=== PATIENT | female | born 1950 | race Caucasian/White ===

== ENCOUNTER 2019-08-15 13:11 | Emergency (ER) | payer BC ==
--- NOTE | 2019-08-15 13:17 | ERPHSYRPT ---
- History of Present Illness Time Seen by Provider: 08/15/19 13:16 Source: patient Exam Limitations: clinical condition Physician History: This is a 69-year-old frail white female who states that she has not been feeling well for a long time. She was unable to specify how long that is been. Patient denies headache, she denies nausea vomiting or diarrhea. Patient denies chest pain, she denies shortness of breath, she denies abdominal pain. Patient states she primarily just feels weak and tired. Patient states there is been no new medications. She is noticed no blood loss. Patient has no known drug allergies and she has no reportable medications that she takes on a chronic daily basis. Timing/Duration: other Severity: moderate Associated Symptoms: weakness, No nausea, No vomiting, No abdominal pain, No shortness of breath, No chest pain, No fever Allergies/Adverse Reactions: No Known Drug Allergies Allergy (Unverified 08/15/19 13:38) Home Medications: No Reportable Medications [No Reported Medications] 08/15/19 [History] Travel Risk - International Travel Have you traveled outside of the country in past 3 weeks: No Have you or anyone close to you been diagnosed with or: No Do your reside in a community with a known COVID-19 case?: Yes If Yes where:: [address] [place] [address] - Coronavirus Screening Has patient experienced Coronavirus symptoms: Yes Symptoms experienced: weakness - Review of Systems Constitutional: Weakness Eyes: No Symptoms Ears, Nose, & Throat: No Symptoms Respiratory: No Symptoms Cardiac: No Symptoms Abdominal/Gastrointestinal: No Symptoms Genitourinary Symptoms: No Symptoms Musculoskeletal: No Symptoms Skin: No Symptoms Neurological: No Symptoms Psychological: No Symptoms Endocrine: No Symptoms Hematologic/Lymphatic: No Symptoms Immunological/Allergic: No Symptoms All Other Systems: Reviewed and Negative - Past Medical History Neurological History: No Pertinent History ENT History: No Pertinent History Cardiac History: No Pertinent History Respiratory History: No Pertinent History Endocrine Medical History: No Pertinent History Musculoskeletal History: No Pertinent History GI Medical History: No Pertinent History History: No Pertinent History Psycho-Social History: No Pertinent History Female Reproductive Disorders: No Pertinent History - Past Surgical History Neuro Surgical History: No Pertinent History Cardiac: No Pertinent History Respiratory: No Pertinent History Gastrointestinal: No Pertinent History Genitourinary: No Pertinent History Musculoskeletal: No Pertinent History Female Surgical History: No Pertinent History - Nursing Vital Signs Nursing Vital Signs: Initial Vital Signs Temperature 98.7 F 08/15/19 13:21 Pulse Rate 90 08/15/19 13:21 Respiratory Rate 20 08/15/19 13:21 Blood Pressure 142/77 08/15/19 13:21 O2 Sat by Pulse Oximetry 96 08/15/19 13:21 Pain Scale Pain Intensity 0 - Physical Exam General Appearance: mild distress, alert, lethargy, thin Eye Exam: PERRL/EOMI, eyes nml inspection Ears, Nose, Throat Exam: normal ENT inspection, dry mucous membranes Neck Exam: normal inspection, non-tender, supple, full range of motion Respiratory Exam: normal breath sounds, lungs clear, airway intact, No chest tenderness, No respiratory distress Cardiovascular Exam: regular rate/rhythm, normal heart sounds, normal peripheral pulses Gastrointestinal/Abdomen Exam: soft, normal bowel sounds, No tenderness Pelvic Exam: not done Rectal Exam: not done Back Exam: normal inspection, normal range of motion, No CVA tenderness Extremity Exam: normal inspection, normal range of motion, pelvis stable Neurologic Exam: alert, oriented x 3, cooperative, supervisor long goods II-XII nml as tested Skin Exam: normal color, warm, dry Lymphatic Exam: No adenopathy SpO2 Interpretation: normal O2 Delivery: Room Air - Course Nursing assessment & vital signs reviewed: Yes Ordered Tests: Active Orders 24 hr Category Date Time Status Clean Catch Urine Specimen STAT Care 08/15/19 14:49 Active EKG-ER Only STAT Care 08/15/19 13:31 Active HEAD WITHOUT CONTRAST [CT] Stat Exams 08/15/19 13:47 Completed CBC W DIFF Stat Lab 08/15/19 13:59 Completed CMP Stat Lab 08/15/19 13:59 Completed Lactic Acid Stat Lab 08/15/19 13:50 Completed MAGNESIUM Stat Lab 08/15/19 13:59 Completed NT PRO BNP Stat Lab 08/15/19 13:59 Completed T4 (Thyroxine) Stat Lab 08/15/19 13:59 Completed TROPONIN Q3H Lab 08/15/19 13:30 Completed TROPONIN Q3H Lab 08/15/19 16:30 Ordered TROPONIN Q3H Lab 08/15/19 19:30 Ordered TROPONIN Q3H Lab 08/15/19 22:30 Ordered TROPONIN Q3H Lab 08/16/19 01:30 Ordered TSH, 3RD Generation Routine Lab 08/15/19 13:30 Completed UA W/RFX UR CULTURE Stat Lab 08/15/19 13:53 Completed Urine Triage Profile Stat Lab 08/15/19 Completed Medication Summary Generic Name Dose Route Start Last Admin Trade Name Chau PRN Reason Stop Dose Admin Sodium Chloride 1,000 mls @ 100 mls/hr 08/15/19 13:45 08/15/19 13:44 Sodium Chloride 0.9% 1000 Ml IV 09/14/19 13:44 100 mls/hr .Q10H EDY Administration Lab/Rad Data: Laboratory Result Diagrams 08/15/19 13:59 08/15/19 13:59 Laboratory Results 08/15/19 08/15/19 08/15/19 Range/Units Unknown 13:59 13:59 WBC (4.0-10.5) K/mm3 RBC (4.1-5.4) M/mm3 Hgb (12.0-16.0) gm/dl Hct (35-47) % MCV (78-100) fl MCH (26-32) pg MCHC (32-36) g/dl RDW (11.5-14.0) % Plt Count (150-450) K/mm3 MPV (7.5-11.0) fl Gran % (36.0-66.0) % Eos # (Auto) (0-0.5) Absolute Lymphs (auto) (1.0-4.6) Absolute Monos (auto) (0.0-1.3) Lymphocytes % (24.0-44.0) % Monocytes % (0.0-12.0) % Eosinophils % (0.00-5.0) % Basophils % (0.0-0.4) % Absolute Granulocytes (1.4-6.9) Basophils # (0-0.4) Sodium (137-145) mmol/L Potassium (3.5-5.1) mmol/L Chloride (98-107) mmol/L Carbon Dioxide (22-30) mmol/L Anion Gap (5-15) MEQ/L BUN (7-17) mg/dL Creatinine (0.52-1.04) mg/dL Estimated GFR ML/MIN Glucose (74-106) mg/dL Lactic Acid (0.4-2.0) Calcium (8.4-10.2) mg/dL Magnesium (1.6-2.3) mg/dL Total Bilirubin (0.2-1.3) mg/dL AST (14-36) U/L ALT (0-35) U/L Alkaline Phosphatase (38-126) U/L Ammonia < 9 L (9-30) umol/L Troponin I (0.000-0.034) ng/mL NT-Pro-B Natriuret Pep (0-900) pg/mL Serum Total Protein (6.3-8.2) g/dL Albumin (3.5-5.0) g/dL Thyroxine (T4) (5.53-10.96) ug/dL TSH 3rd Generation (0.47-4.68) mIU/L Urine Color (YELLOW) Urine Appearance (CLEAR) Urine pH (5-6) Ur Specific [place] (1.005-1.025) Urine Protein (Negative) Urine Ketones (NEGATIVE) Urine Blood (0-5) Milad/ul Urine Nitrite (NEGATIVE) Urine Bilirubin (NEGATIVE) Urine Urobilinogen (0-1) mg/dL Ur Leukocyte Esterase (NEGATIVE) Urine WBC (Auto) (0-5) /HPF Urine RBC (Auto) (0-2) /HPF U Epithel Cells (Auto) (FEW) /HPF Urine Bacteria (Auto) (NEGATIVE) /HPF Urine Mucus (Auto) (NEGATIVE) /HPF Urine Culture Reflexed (NO) Urine Glucose (NEGATIVE) mg/dL Urine Opiates Level NEGATIVE (NEGATIVE) Ur Methadone NEGATIVE (NEGATIVE) Urine Barbiturates NEGATIVE (NEGATIVE) Ur Phencyclidine (PCP) NEGATIVE (NEGATIVE) Urine Amphetamine NEGATIVE (NEGATIVE) U Benzodiazepine Level NEGATIVE (NEGATIVE) Urine Cocaine NEGATIVE (NEGATIVE) Urine Marijuana (THC) NEGATIVE (NEGATIVE) Influenza Type A Ag NEGATIVE (NEGATIVE) Influenza Type B Ag NEGATIVE (NEGATIVE) RSV (PCR) NEGATIVE (Negative) 08/15/19 08/15/19 08/15/19 Range/Units 13:59 13:59 13:53 WBC 5.4 (4.0-10.5) K/mm3 RBC 4.01 L (4.1-5.4) M/mm3 Hgb 11.8 L (12.0-16.0) gm/dl Hct 36.3 (35-47) % MCV 90.5 (78-100) fl MCH 29.4 (26-32) pg MCHC 32.5 (32-36) g/dl RDW 13.3 (11.5-14.0) % Plt Count 200 (150-450) K/mm3 MPV 10.5 (7.5-11.0) fl Gran % 55.6 (36.0-66.0) % Eos # (Auto) 0.05 (0-0.5) Absolute Lymphs (auto) 1.95 (1.0-4.6) Absolute Monos (auto) 0.38 (0.0-1.3) Lymphocytes % 36.2 (24.0-44.0) % Monocytes % 7.1 (0.0-12.0) % Eosinophils % 0.9 (0.00-5.0) % Basophils % 0.2 (0.0-0.4) % Absolute Granulocytes 2.99 (1.4-6.9) Basophils # 0.01 (0-0.4) Sodium 140 (137-145) mmol/L Potassium 4.1 (3.5-5.1) mmol/L Chloride 103 (98-107) mmol/L Carbon Dioxide 28 (22-30) mmol/L Anion Gap 12.6 (5-15) MEQ/L BUN 28 H (7-17) mg/dL Creatinine 0.79 (0.52-1.04) mg/dL Estimated GFR > 60.0 ML/MIN Glucose 116 H (74-106) mg/dL Lactic Acid (0.4-2.0) Calcium 9.5 (8.4-10.2) mg/dL Magnesium 2.1 (1.6-2.3) mg/dL Total Bilirubin 0.60 (0.2-1.3) mg/dL AST 24 (14-36) U/L ALT 16 (0-35) U/L Alkaline Phosphatase 64 (38-126) U/L Ammonia (9-30) umol/L Troponin I (0.000-0.034) ng/mL NT-Pro-B Natriuret Pep 55.2 (0-900) pg/mL Serum Total Protein 7.4 (6.3-8.2) g/dL Albumin 4.4 (3.5-5.0) g/dL Thyroxine (T4) 9.04 (5.53-10.96) ug/dL TSH 3rd Generation (0.47-4.68) mIU/L Urine Color YELLOW (YELLOW) Urine Appearance CLEAR (CLEAR) Urine pH 7.0 (5-6) Ur Specific [place] 1.021 (1.005-1.025) Urine Protein NEGATIVE (Negative) Urine Ketones NEGATIVE (NEGATIVE) Urine Blood SMALL (0-5) Milad/ul Urine Nitrite NEGATIVE (NEGATIVE) Urine Bilirubin NEGATIVE (NEGATIVE) Urine Urobilinogen 2 (0-1) mg/dL Ur Leukocyte Esterase NEGATIVE (NEGATIVE) Urine WBC (Auto) NONE (0-5) /HPF Urine RBC (Auto) 6-10 (0-2) /HPF U Epithel Cells (Auto) NONE (FEW) /HPF Urine Bacteria (Auto) NONE (NEGATIVE) /HPF Urine Mucus (Auto) SLIGHT (NEGATIVE) /HPF Urine Culture Reflexed NO (NO) Urine Glucose NEGATIVE (NEGATIVE) mg/dL Urine Opiates Level (NEGATIVE) Ur Methadone (NEGATIVE) Urine Barbiturates (NEGATIVE) Ur Phencyclidine (PCP) (NEGATIVE) Urine Amphetamine (NEGATIVE) U Benzodiazepine Level (NEGATIVE) Urine Cocaine (NEGATIVE) Urine Marijuana (THC) (NEGATIVE) Influenza Type A Ag (NEGATIVE) Influenza Type B Ag (NEGATIVE) RSV (PCR) (Negative) 08/15/19 08/15/19 Range/Units 13:50 13:30 WBC (4.0-10.5) K/mm3 RBC (4.1-5.4) M/mm3 Hgb (12.0-16.0) gm/dl Hct (35-47) % MCV (78-100) fl MCH (26-32) pg MCHC (32-36) g/dl RDW (11.5-14.0) % Plt Count (150-450) K/mm3 MPV (7.5-11.0) fl Gran % (36.0-66.0) % Eos # (Auto) (0-0.5) Absolute Lymphs (auto) (1.0-4.6) Absolute Monos (auto) (0.0-1.3) Lymphocytes % (24.0-44.0) % Monocytes % (0.0-12.0) % Eosinophils % (0.00-5.0) % Basophils % (0.0-0.4) % Absolute Granulocytes (1.4-6.9) Basophils # (0-0.4) Sodium (137-145) mmol/L Potassium (3.5-5.1) mmol/L Chloride (98-107) mmol/L Carbon Dioxide (22-30) mmol/L Anion Gap (5-15) MEQ/L BUN (7-17) mg/dL Creatinine (0.52-1.04) mg/dL Estimated GFR ML/MIN Glucose (74-106) mg/dL Lactic Acid 0.7 (0.4-2.0) Calcium (8.4-10.2) mg/dL Magnesium (1.6-2.3) mg/dL Total Bilirubin (0.2-1.3) mg/dL AST (14-36) U/L ALT (0-35) U/L Alkaline Phosphatase (38-126) U/L Ammonia (9-30) umol/L Troponin I < 0.012 (0.000-0.034) ng/mL NT-Pro-B Natriuret Pep (0-900) pg/mL Serum Total Protein (6.3-8.2) g/dL Albumin (3.5-5.0) g/dL Thyroxine (T4) (5.53-10.96) ug/dL TSH 3rd Generation 0.697 (0.47-4.68) mIU/L Urine Color (YELLOW) Urine Appearance (CLEAR) Urine pH (5-6) Ur Specific [place] (1.005-1.025) Urine Protein (Negative) Urine Ketones (NEGATIVE) Urine Blood (0-5) Milad/ul Urine Nitrite (NEGATIVE) Urine Bilirubin (NEGATIVE) Urine Urobilinogen (0-1) mg/dL Ur Leukocyte Esterase (NEGATIVE) Urine WBC (Auto) (0-5) /HPF Urine RBC (Auto) (0-2) /HPF U Epithel Cells (Auto) (FEW) /HPF Urine Bacteria (Auto) (NEGATIVE) /HPF Urine Mucus (Auto) (NEGATIVE) /HPF Urine Culture Reflexed (NO) Urine Glucose (NEGATIVE) mg/dL Urine Opiates Level (NEGATIVE) Ur Methadone (NEGATIVE) Urine Barbiturates (NEGATIVE) Ur Phencyclidine (PCP) (NEGATIVE) Urine Amphetamine (NEGATIVE) U Benzodiazepine Level (NEGATIVE) Urine Cocaine (NEGATIVE) Urine Marijuana (THC) (NEGATIVE) Influenza Type A Ag (NEGATIVE) Influenza Type B Ag (NEGATIVE) RSV (PCR) (Negative) - Progress Progress: improved Progress Note: 08/15/19 13:47 Adequate decision making: This patient has been declining over several days. We did get more information from the patient's significant other. Patient states that that she has been weak for a while. This is confirmed by the significant other. Patient's significant other states that she noticed the patient dragging her foot while walking ambulating yesterday and then this morning she had a little more difficult time waking up. She was at [facility] and could not sign her check right away. He became concerned. This occurred approximate 11 years ago and patient was found to be anemic and required hospitalization and blood transfusion. Therefore we will add a CAT scan of her head and await her laboratory data. The differential diagnosis includes anemia , TIA, CVA, myocardial infarction, electrolyte abnormalities, dehydration, urinary tract infection. 08/15/19 15:19 I received more information from the patient's significant other. Over the last several weeks the patient has forgotten how to take a bath and how to sit down on a occasion. Dementia needs to be further evaluated on an outpatient basis. The CAT scan of the brain reveals an aging brain including atrophy and degenerative micro-ischemia. There are no acute abnormalities present. - Departure Departure Disposition: Home Clinical Impression: Confusion, Anxiety Condition: Stable Critical Care Time: No Referrals: LATANYA WETZEL NP [Primary Care Provider] - Additional Instructions: Follow-up with your primary care provider on an outpatient basis.
[2019-08-15] MEDS ORDERED: Sodium Chloride 0.9% 1000 ML 1,000 ML IV SCH (13:45)
[2019-08-15 14:03] LABS: Appearance CLEAR (CLEAR); Bilirubin NEGATIVE (NEGATIVE); Blood SMALL Ery/ul (0-5); Glucose NEGATIVE (NEGATIVE); Ketones NEGATIVE (NEGATIVE); Leukocyte Esterase NEGATIVE (NEGATIVE); Mucus SLIGHT /HPF (NEGATIVE); Nitrite NEGATIVE (NEGATIVE); Protein,Urine Dip NEGATIVE (Negative); Specific Gravity 1.021 (1.005-1.025); Urobilinogen 2 mg/dL (0-1)
[2019-08-15 14:07] LABS: Absolute Neutrophil Ct (ANC) 2.99 (1.4-6.9); BASOPHIL % 0.2 % (0.0-0.4); Basophil (Absolute #) 0.01 (0-0.4); Eosinophil % 0.9 % (0.00-5.0); Eosinophil (Absolute #) 0.05 (0-0.5); Hematocrit 36.3 % (35-47); Hemoglobin 11.8 gm/dl (12.0-16.0); Lymphocyte (Absolute #) 1.95 (1.0-4.6); Lymphocytes % 36.2 % (24.0-44.0); Mean Cell Volume 90.5 fl (78-100); Mean Corpuscular Hemoglobin 29.4 pg (26-32); Mean Corpuscular Hgb Concent. 32.5 g/dl (32-36); Mean Platelet Volume 10.5 fl (7.5-11.0); Monocyte (Absolute #) 0.38 (0.0-1.3); Monocytes % 7.1 % (0.0-12.0); Neutrophil % 55.6 % (36.0-66.0); Platelet Count 200 K/mm3 (150-450); Red Blood Count 4.01 M/mm3 (4.1-5.4); Red Cell Distribution Width 13.3 % (11.5-14.0); White Blood Count 5.4 K/mm3 (4.0-10.5)
--- NOTE | 2019-08-15 14:18 | XRAY ---
Indication: Confusion and lethargy. Multiple contiguous axial images obtained through the head without contrast. Comparison: None There is global atrophy and moderate/advanced periventricular degenerative micro-ischemia bilaterally consistent with aging brain. No acute intracranial hemorrhage, abnormal extra-axial fluid collection, or mass effect. Fourth ventricle is midline. Bony calvarium intact. Visualized paranasal sinuses and mastoid air cells are clear. Impression: Aging brain including atrophy and degenerative micro-ischemia. No acute intracranial abnormalities. Follow-up CT or MRI may yield further information if there remains clinical concern.
[2019-08-15 14:33] LABS: ALBUMIN 4.4 g/dL (3.5-5.0); ALKALINE PHOSPHATASE 64 U/L (38-126); ANION GAP 12.6 MEQ/L (5-15); BLOOD UREA NITROGEN 28 mg/dL (7-17); CHLORIDE 103 mmol/L (98-107); Calcium 9.5 mg/dL (8.4-10.2); Carbon Dioxide 28 mmol/L (22-30); Creatinine 1 0.79 mg/dL (0.52-1.04); Glucose 116 mg/dL (74-106); MAGNESIUM 2.1 mg/dL (1.6-2.3); NT PRO BNP 55.2 pg/mL (0-900); Potassium 4.1 mmol/L (3.5-5.1); SGOT/AST 24 U/L (14-36); SGPT/ALT 16 U/L (0-35); SODIUM 140 mmol/L (137-145); T4 (Thyroxine) 9.04 ug/dL (5.53-10.96); Total Protein 7.4 g/dL (6.3-8.2)
[2019-08-15 14:43] LABS: INFLUENZA A NEGATIVE (NEGATIVE); INFLUENZA B NEGATIVE (NEGATIVE); RESPIRATORY SYNCTIAL VIRUS NEGATIVE (Negative)
[2019-08-15 14:44] VITALS: O2SAT 98
[2019-08-15 14:48] LABS: TROPONIN < 0.012 ng/mL (0.000-0.034); TSH, 3RD Generation 0.697 mIU/L (0.47-4.68)
[2019-08-15 15:12] LABS: Amphetamine,Urine NEGATIVE (NEGATIVE); Barbiturate,Urine NEGATIVE (NEGATIVE); Benzodiazepine,Urine NEGATIVE (NEGATIVE); Cocaine,Urine NEGATIVE (NEGATIVE); Methadone,Urine NEGATIVE (NEGATIVE); Opiate,Urine NEGATIVE (NEGATIVE); PCP,Urine NEGATIVE (NEGATIVE); THC,Urine NEGATIVE (NEGATIVE)
[2019-08-15 15:25] VITALS: BP 156/86
[2019-08-15 15:36] VITALS: PULSE 68
== END 2019-08-15 15:36 | disposition home or self-care (01) ==
LOC: ED 13:11
DX: R41.0 Disorientation, unspecified (principal); F41.9 Anxiety disorder, unspecified
CPT/HCPCS: 36000; 36415; 70450; 80053; 80307; 81001; 82140; 83605; 83735; 83880; 84436; 84443; 84484; 85025; 87631; 93005; 96360; 99284

== ENCOUNTER 2019-09-17 17:37 | Emergency (ER) | payer BC ==
[2019-09-17 18:31] LABS: Appearance CLEAR (CLEAR); Bacteria RARE /HPF (NEGATIVE); Bilirubin NEGATIVE (NEGATIVE); Blood SMALL Ery/ul (0-5); Glucose NEGATIVE (NEGATIVE); Ketones NEGATIVE (NEGATIVE); Leukocyte Esterase NEGATIVE (NEGATIVE); Mucus SLIGHT /HPF (NEGATIVE); Nitrite NEGATIVE (NEGATIVE); Protein,Urine Dip NEGATIVE (Negative); Urobilinogen 2 mg/dL (0-1)
[2019-09-17] MEDS ORDERED: Sodium Chloride 0.9% 1000 ML 1,000 ML IV STA (18:48)
[2019-09-17 19:22] LABS: Absolute Neutrophil Ct (ANC) 3.36 (1.4-6.9); BASOPHIL % 0.2 % (0.0-0.4); Basophil (Absolute #) 0.01 (0-0.4); Eosinophil % 1.5 % (0.00-5.0); Eosinophil (Absolute #) 0.09 (0-0.5); Hemoglobin 14.4 gm/dl (12.0-16.0); Lymphocyte (Absolute #) 2.23 (1.0-4.6); Lymphocytes % 36.7 % (24.0-44.0); Mean Corpuscular Hemoglobin 32.9 pg (26-32); Mean Corpuscular Hgb Concent. 36.9 g/dl (32-36); Mean Platelet Volume 10.6 fl (7.5-11.0); Monocyte (Absolute #) 0.39 (0.0-1.3); Monocytes % 6.4 % (0.0-12.0); Neutrophil % 55.2 % (36.0-66.0); Platelet Count 218 K/mm3 (150-450); Red Blood Count 4.38 M/mm3 (4.1-5.4); Red Cell Distribution Width 13.1 % (11.5-14.0); White Blood Count 6.1 K/mm3 (4.0-10.5)
[2019-09-17] MEDS ORDERED: Sodium Chloride 0.9% 1000 ML 1,000 ML ONE (19:23)
[2019-09-17 19:26] LABS: VBG BASE EXCESS 9.4 (-2.0-2.0); VBG CARBOXYHEMOGLOBIN 2.2 % T HGB (0.0-6.9); VBG HCO3- 34.3 meq/L (22-28); VBG HEMOGLOBIN 13.2; VBG O2 SATURATION 77.1 (95-100); VBG POTASSIUM 3.6 (3.5-5.1); VBG pH 7.48 (7.32-7.42)
[2019-09-17 19:28] LABS: INR 1.03 (0.8-3.0); PROTIME 11.6 SECONDS (9.95-12.35)
[2019-09-17 19:33] LABS: ALBUMIN 4.3 g/dL (3.5-5.0); ALKALINE PHOSPHATASE 65 U/L (38-126); ANION GAP 11.8 MEQ/L (5-15); BLOOD UREA NITROGEN 21 mg/dL (7-17); CHLORIDE 99 mmol/L (98-107); Calcium 9.5 mg/dL (8.4-10.2); Carbon Dioxide 31 mmol/L (22-30); Creatinine 1 0.65 mg/dL (0.52-1.04); Glucose 102 mg/dL (74-106); Potassium 3.4 mmol/L (3.5-5.1); SGOT/AST 23 U/L (14-36); SGPT/ALT 17 U/L (0-35); SODIUM 139 mmol/L (137-145); Total Protein 7.7 g/dL (6.3-8.2)
[2019-09-17 19:53] LABS: Erythrocyte Sedimentation Rate 17 mm/hr (0-20)
--- NOTE | 2019-09-17 20:40 | ERPHSYRPT ---
- History of Present Illness Time Seen by Provider: 09/17/19 18:00 Source: family Exam Limitations: clinical condition Patient Subjective Stated Complaint: weakness Triage Nursing Assessment: Patient brought back to ED via w/c and transferred to bed with assist of 1. Patient Alert to self only. Patient's skin pink, warm and dry. Patient's family stated her urine has been dark and foul smelling. Patient denies pain or discomfort. Lung clear a/p sanjuanita. Physician History: 89 YO F SEEN 08/14 DX'D WITH NEW ONSET DEMENTIA. RETURNS WITH CONTINUED DETERIORATION. CANT WALK OR STAND, COGNITIVE FUNCTIONS HAVE ALSO DECLINED. Timing/Duration: week(s) (4) Severity: severe Character of Deficits: new weakness, impaired speech Deficits: cannot walk, falling, off balance Baseline/Normal Cognition: alert but confused Current Cognition: alert but confused Baseline Gait: unable to walk Associated Symptoms: confusion, weakness, slurred speech, trouble walking Allergies/Adverse Reactions: No Known Drug Allergies Allergy (Verified 09/17/19 18:03) Home Medications: No Reportable Medications [No Reported Medications] 08/15/19 [History] Hx Tetanus, Diphtheria Vaccination/Date Given: Yes Hx Influenza Vaccination/Date Given: No Hx Pneumococcal Vaccination/Date Given: No Immunizations Up to Date: Yes Travel Risk - International Travel Have you traveled outside of the country in past 3 weeks: No Have you or anyone close to you been diagnosed with or: No Do your reside in a community with a known COVID-19 case?: Yes If Yes where:: [place] - Coronavirus Screening Has patient experienced Coronavirus symptoms: No - Review of Systems All Other Systems: Unable due to condition - Past Medical History Pertinent Past Medical History: Yes Neurological History: No Pertinent History ENT History: No Pertinent History Cardiac History: No Pertinent History Respiratory History: No Pertinent History Endocrine Medical History: No Pertinent History Musculoskeletal History: No Pertinent History GI Medical History: No Pertinent History History: No Pertinent History Psycho-Social History: No Pertinent History Female Reproductive Disorders: No Pertinent History - Past Surgical History Past Surgical History: No Neuro Surgical History: No Pertinent History Cardiac: No Pertinent History Respiratory: No Pertinent History Gastrointestinal: No Pertinent History Genitourinary: No Pertinent History Musculoskeletal: No Pertinent History Female Surgical History: No Pertinent History - Social History Smoking Status: Never smoker Exposure to second hand smoke: Yes Drug Use: none Patient Lives Alone: No - Female History Hx Now: No - Nursing Vital Signs Nursing Vital Signs: Initial Vital Signs Temperature 98.2 F 09/17/19 17:48 Pulse Rate 68 09/17/19 17:48 Respiratory Rate 18 09/17/19 17:48 Blood Pressure 157/86 09/17/19 17:48 O2 Sat by Pulse Oximetry 98 09/17/19 17:48 Pain Scale Pain Intensity 0 - [place] Coma Scale Best Eye Response (Adalid): (4) open spontaneously Best Verbal Response ([place]): (4) confused conversation Best Motor Response ([place]): (6) obeys commands Adalid Total: 14 - Physical Exam General Appearance: moderate distress Eye Exam: right eye: normal inspection, PERRL, EOMI Ears, Nose, Throat Exam: normal ENT inspection Neck Exam: normal inspection Respiratory: normal breath sounds, lungs clear Cardiovascular: regular rate/rhythm, normal heart sounds Gastrointestinal: soft, normal bowel sounds Pelvic Exam: not done Rectal Exam: not done Back Exam: normal inspection, normal range of motion Extremity Exam: normal inspection Peripheral Pulses: carotid (R): 2+, carotid (L): 2+ Mental Status: alert, uncooperative, disoriented to person, disoriented to place , disoriented to time etl database developer Exam: normal hearing Coordination/Gait: abnormal gait, ABN nose to finger (R), ABN nose to finger (L) , No normal cerebellar function Motor/Sensory: weak motor strength RUE, weak motor strength LUE, weak motor strength RLE, weak motor strength LLE DTR: bicep (R): 2+, bicep (L): 2+, knee (R): 2+, knee (L): 2+ Skin Exam: normal color, warm, dry SpO2 Interpretation: normal SpO2: 99 O2 Delivery: Room Air - Course Nursing assessment & vital signs reviewed: Yes - CT Exams Head CT Interpretation: Tele-radiologist Report Ordered Tests: Active Orders 24 hr Category Date Time Status IV Insertion STAT Care 09/17/19 18:48 Active HEAD WITHOUT CONTRAST [CT] Stat Exams 09/17/19 18:49 Taken BLOOD CULTURE Stat Lab 09/17/19 19:10 Received CBC W DIFF Stat Lab 09/17/19 19:00 Completed CK (IN-HOUSE) [CK-Creatinine Phosphokinase] Stat Lab 09/17/19 19:00 Completed CMP Stat Lab 09/17/19 19:00 Completed CULTURE,URINE Stat Lab 09/17/19 18:20 Stop Req Erythrocyte Sedimentation Rate Stat Lab 09/17/19 19:00 Completed Lactic Acid Urgent Lab 09/17/19 19:16 Completed PROTIME WITH INR Stat Lab 09/17/19 19:00 Completed UA W/RFX UR CULTURE Stat Lab 09/17/19 18:20 Completed VENOUS BLOOD GAS Urgent Lab 09/17/19 19:16 Completed Medication Summary Discontinued Medications Generic Name Dose Route Start Last Admin Trade Name Freq PRN Reason Stop Dose Admin Sodium Chloride 1,000 mls @ 999 mls/hr 09/17/19 18:48 09/17/19 19:36 Sodium Chloride 0.9% 1000 Ml IV 09/17/19 19:48 999 mls/hr .Q1H1M STA Administration Sodium Chloride Confirm 09/17/19 19:23 Sodium Chloride 0.9% 1000 Ml Administered 09/17/19 19:24 Dose 1,000 mls @ ud .ROUTE .K-MED ONE Lab/Rad Data: Laboratory Result Diagrams 09/17/19 19:00 09/17/19 19:00 Laboratory Results 09/17/19 09/17/19 09/17/19 Range/Units 19:16 19:16 19:00 WBC (4.0-10.5) K/mm3 RBC (4.1-5.4) M/mm3 Hgb (12.0-16.0) gm/dl Hct (35-47) % MCV (78-100) fl MCH (26-32) pg MCHC (32-36) g/dl RDW (11.5-14.0) % Plt Count (150-450) K/mm3 MPV (7.5-11.0) fl Gran % (36.0-66.0) % Eos # (Auto) (0-0.5) Absolute Lymphs (auto) (1.0-4.6) Absolute Monos (auto) (0.0-1.3) Lymphocytes % (24.0-44.0) % Monocytes % (0.0-12.0) % Eosinophils % (0.00-5.0) % Basophils % (0.0-0.4) % Absolute Granulocytes (1.4-6.9) Basophils # (0-0.4) ESR (0-20) mm/hr PT (9.95-12.35) SECONDS INR (0.8-3.0) pO2/FiO2 Ratio 21.0 % VBG pH 7.48 H (7.32-7.42) VBG pCO2 at Pat Temp 46 (42-55) mm/Hg VBG pO2 at Pat Temp 43 H (25-40) mm/Hg VBG HCO3 34.3 H* (22-28) meq/L VBG O2 Sat (Osmani) 77.1 L (95-100) VBG Base Excess 9.4 H (-2.0-2.0) VBG Hemoglobin 13.2 VBG Carboxyhemoglobin 2.2 (0.0-6.9) % T HGB POC Potassium 3.6 (3.5-5.1) Sodium (137-145) mmol/L Potassium (3.5-5.1) mmol/L Chloride (98-107) mmol/L Carbon Dioxide (22-30) mmol/L Anion Gap (5-15) MEQ/L BUN (7-17) mg/dL Creatinine (0.52-1.04) mg/dL Estimated GFR ML/MIN Glucose (74-106) mg/dL Lactic Acid 1.0 (0.4-2.0) Calcium (8.4-10.2) mg/dL Total Bilirubin (0.2-1.3) mg/dL AST (14-36) U/L ALT (0-35) U/L Alkaline Phosphatase (38-126) U/L Creatine Kinase 75 (30-135) U/L Serum Total Protein (6.3-8.2) g/dL Albumin (3.5-5.0) g/dL Urine Color (YELLOW) Urine Appearance (CLEAR) Urine pH (5-6) Ur Specific [place] (1.005-1.025) Urine Protein (Negative) Urine Ketones (NEGATIVE) Urine Blood (0-5) Milad/ul Urine Nitrite (NEGATIVE) Urine Bilirubin (NEGATIVE) Urine Urobilinogen (0-1) mg/dL Ur Leukocyte Esterase (NEGATIVE) Urine WBC (Auto) (0-5) /HPF Urine RBC (Auto) (0-2) /HPF U Epithel Cells (Auto) (FEW) /HPF Urine Bacteria (Auto) (NEGATIVE) /HPF Urine Mucus (Auto) (NEGATIVE) /HPF Urine Culture Reflexed (NO) Urine Glucose (NEGATIVE) mg/dL 09/17/19 09/17/19 09/17/19 Range/Units 19:00 19:00 19:00 WBC 6.1 (4.0-10.5) K/mm3 RBC 4.38 (4.1-5.4) M/mm3 Hgb 14.4 (12.0-16.0) gm/dl Hct 39.0 (35-47) % MCV 89.0 (78-100) fl MCH 32.9 H (26-32) pg MCHC 36.9 H (32-36) g/dl RDW 13.1 (11.5-14.0) % Plt Count 218 (150-450) K/mm3 MPV 10.6 (7.5-11.0) fl Gran % 55.2 (36.0-66.0) % Eos # (Auto) 0.09 (0-0.5) Absolute Lymphs (auto) 2.23 (1.0-4.6) Absolute Monos (auto) 0.39 (0.0-1.3) Lymphocytes % 36.7 (24.0-44.0) % Monocytes % 6.4 (0.0-12.0) % Eosinophils % 1.5 (0.00-5.0) % Basophils % 0.2 (0.0-0.4) % Absolute Granulocytes 3.36 (1.4-6.9) Basophils # 0.01 (0-0.4) ESR 17 (0-20) mm/hr PT 11.6 (9.95-12.35) SECONDS INR 1.03 (0.8-3.0) pO2/FiO2 Ratio % VBG pH (7.32-7.42) VBG pCO2 at Pat Temp (42-55) mm/Hg VBG pO2 at Pat Temp (25-40) mm/Hg VBG HCO3 (22-28) meq/L VBG O2 Sat ([place]man[place]) (95-100) VBG Base Excess (-2.0-2.0) VBG Hemoglobin VBG Carboxyhemoglobin (0.0-6.9) % T HGB POC Potassium (3.5-5.1) Sodium 139 (137-145) mmol/L Potassium 3.4 L (3.5-5.1) mmol/L Chloride 99 (98-107) mmol/L Carbon Dioxide 31 H (22-30) mmol/L Anion Gap 11.8 (5-15) MEQ/L BUN 21 H (7-17) mg/dL Creatinine 0.65 (0.52-1.04) mg/dL Estimated GFR > 60.0 ML/MIN Glucose 102 (74-106) mg/dL Lactic Acid (0.4-2.0) Calcium 9.5 (8.4-10.2) mg/dL Total Bilirubin 0.60 (0.2-1.3) mg/dL AST 23 (14-36) U/L ALT 17 (0-35) U/L Alkaline Phosphatase 65 (38-126) U/L Creatine Kinase (30-135) U/L Serum Total Protein 7.7 (6.3-8.2) g/dL Albumin 4.3 (3.5-5.0) g/dL Urine Color (YELLOW) Urine Appearance (CLEAR) Urine pH (5-6) Ur Specific [place] (1.005-1.025) Urine Protein (Negative) Urine Ketones (NEGATIVE) Urine Blood (0-5) Milad/ul Urine Nitrite (NEGATIVE) Urine Bilirubin (NEGATIVE) Urine Urobilinogen (0-1) mg/dL Ur Leukocyte Esterase (NEGATIVE) Urine WBC (Auto) (0-5) /HPF Urine RBC (Auto) (0-2) /HPF U Epithel Cells (Auto) (FEW) /HPF Urine Bacteria (Auto) (NEGATIVE) /HPF Urine Mucus (Auto) (NEGATIVE) /HPF Urine Culture Reflexed (NO) Urine Glucose (NEGATIVE) mg/dL 09/17/19 Range/Units 18:20 WBC (4.0-10.5) K/mm3 RBC (4.1-5.4) M/mm3 Hgb (12.0-16.0) gm/dl Hct (35-47) % MCV (78-100) fl MCH (26-32) pg MCHC (32-36) g/dl RDW (11.5-14.0) % Plt Count (150-450) K/mm3 MPV (7.5-11.0) fl Gran % (36.0-66.0) % Eos # (Auto) (0-0.5) Absolute Lymphs (auto) (1.0-4.6) Absolute Monos (auto) (0.0-1.3) Lymphocytes % (24.0-44.0) % Monocytes % (0.0-12.0) % Eosinophils % (0.00-5.0) % Basophils % (0.0-0.4) % Absolute Granulocytes (1.4-6.9) Basophils # (0-0.4) ESR (0-20) mm/hr PT (9.95-12.35) SECONDS INR (0.8-3.0) pO2/FiO2 Ratio % VBG pH (7.32-7.42) VBG pCO2 at Pat Temp (42-55) mm/Hg VBG pO2 at Pat Temp (25-40) mm/Hg VBG HCO3 (22-28) meq/L VBG O2 Sat ([place]) (95-100) VBG Base Excess (-2.0-2.0) VBG Hemoglobin VBG Carboxyhemoglobin (0.0-6.9) % T HGB POC Potassium (3.5-5.1) Sodium (137-145) mmol/L Potassium (3.5-5.1) mmol/L Chloride (98-107) mmol/L Carbon Dioxide (22-30) mmol/L Anion Gap (5-15) MEQ/L BUN (7-17) mg/dL Creatinine (0.52-1.04) mg/dL Estimated GFR ML/MIN Glucose (74-106) mg/dL Lactic Acid (0.4-2.0) Calcium (8.4-10.2) mg/dL Total Bilirubin (0.2-1.3) mg/dL AST (14-36) U/L ALT (0-35) U/L Alkaline Phosphatase (38-126) U/L Creatine Kinase (30-135) U/L Serum Total Protein (6.3-8.2) g/dL Albumin (3.5-5.0) g/dL Urine Color YELLOW (YELLOW) Urine Appearance CLEAR (CLEAR) Urine pH 7.0 (5-6) Ur Specific [place] 1.020 (1.005-1.025) Urine Protein NEGATIVE (Negative) Urine Ketones NEGATIVE (NEGATIVE) Urine Blood SMALL (0-5) Milad/ul Urine Nitrite NEGATIVE (NEGATIVE) Urine Bilirubin NEGATIVE (NEGATIVE) Urine Urobilinogen 2 (0-1) mg/dL Ur Leukocyte Esterase NEGATIVE (NEGATIVE) Urine WBC (Auto) 3-5 (0-5) /HPF Urine RBC (Auto) 3-5 (0-2) /HPF U Epithel Cells (Auto) NONE (FEW) /HPF Urine Bacteria (Auto) RARE (NEGATIVE) /HPF Urine Mucus (Auto) SLIGHT (NEGATIVE) /HPF Urine Culture Reflexed ORDERED SEPARATELY (NO) Urine Glucose NEGATIVE (NEGATIVE) mg/dL - Progress Progress: unchanged - Departure Departure Disposition: Transfer (TRANSFERRED TO [facility] FOR EVALUATION OF MULTIPLE HEMORRHAGIC BRAIN LESIONS) Clinical Impression: Multiple lesions on computed tomography of brain and spine, Confusion Condition: Fair Critical Care Time: Yes Critical Care Time(excluding separately billable procedures): Critical 30-74 mins Referrals: LATANYA WETZEL NP [Primary Care Provider] -
[2019-09-17 21:13] VITALS: BP 149/95; PULSE 99; O2SAT 99
--- NOTE | 2019-09-18 07:44 | XRAY ---
Indication: Weakness. Dementia. Multiple contiguous axial images obtained through the head without contrast. Comparison: August 15, 2019. Images through the base of the brain slightly degraded by motion artifact. Right basal ganglia demonstrates new 1.2 cm round focus of subtle hyperdensity concerning for intraparenchymal hematoma with mass effect effacing the right frontal horn. No midline shift. Elsewhere stable global atrophy and moderate/advanced degenerative micro-ischemia. Fourth ventricle is midline without hydrocephalus. Bony calvarium intact. Visualized paranasal sinuses and mastoid air cells are clear. Impression: 1. Motion artifact. 2. New small right basal ganglia intraparenchymal hematoma with mild mass effect. 3. Stable atrophy and degenerative micro-ischemia. Comment: Preliminary interpretation was made by [facility]. No critical discrepancy.
== END 2019-09-17 21:20 | disposition short-term general hospital (02) ==
LOC: ED 17:37
DX: G93.89 Other specified disorders of brain (principal); R58 Hemorrhage, not elsewhere classified; R41.0 Disorientation, unspecified; F03.90 Unspecified dementia, unspecified severity, without behavioral disturbance, psychotic disturbance, mood disturbance, and anxiety; R53.1 Weakness; R26.89 Other abnormalities of gait and mobility
CPT/HCPCS: 36000; 36415; 70450; 80053; 81001; 82550; 82805; 83605; 85025; 85610; 85652; 87040; 87086; 96360; 99285; 99291

== ENCOUNTER 2019-11-05 03:53 | Emergency (ER) | payer BC ==
--- NOTE | 2019-11-05 04:39 | ERPHSYRPT ---
- History of Present Illness Time Seen by Provider: 11/05/19 04:20 Source: patient, [facility] records Exam Limitations: clinical condition Patient Subjective Stated Complaint: [facility] called and c/o pt falling, confused and combative. Triage Nursing Assessment: Pt brought here by EMS for 2 falls in the last 8 hours at [facility], confused and combative. Pt is alert to name and date of excluding year. Pt has been cooperative here but confused. Lungs clear, heart tones reg, abd soft with active bs x4 quad, nontender. Pt denies any pain or injuries from the fall. Physician History: This is a 69-year-old white female who was brought in by EMS from [facility] for increased confusion and combativeness. Patient has had 2 falls in the last 8 hours. Patient denies hitting her head but she is confused. She has been in the [facility] for approximately 1 month for rehab post head bleed. Patient denies pain of any kind. She is alert to self. Patient has a history of Alzheimer's dementia and history of a CVA. CAT scan of the head on 09/18/2019 shows a right basal ganglia parenchymal hematoma with mild mass- effect. This was a new finding compared to a CAT scan of her head a month prior to that. Patient has also had insomnia the last 2 nights. She was given a dose of Risperdal and melatonin. Occurred: yesterday Reason for Fall: unknown Injuries/Pain Location: no injury Loss of Consciousness: no loss of consciousness, memory impairment Severity of Pain-Max: none Severity of Pain-Current: none Modifying Factors: Improves With: nothing Associated Symptoms (Fall): confusion Allergies/Adverse Reactions: No Known Drug Allergies Allergy (Verified 11/05/19 04:27) Home Medications: Acetaminophen 325 mg [Tylenol 325 mg] 650 mg PO Q4HPRN PRN 11/05/19 [History] Bisacodyl 5 mg [Dulcolax 5 mg] 10 mg PO DAILY PRN PRN 11/05/19 [History] Calcium Carb,Gluc/Mag Ox,Gluc [Calcium Magnesium Caplet] 1 each PO DAILY 11/05/19 [History] Cholecalciferol (Vitamin D3) [Ddrops] 1.25 mg PO UD 07/11/20 [History] Clonidine HCl 0.1 mg [Catapres 0.1 MG] 0.1 mg PO Q8H PRN PRN 11/05/19 [History] Magnesium Hydroxide 30 ml [Milk of Magnesia 30 ml] 30 ml PO DAILY PRN PRN 11/05/19 [History] Melatonin 3 mg PO HS 11/05/19 [History] Hx Tetanus, Diphtheria Vaccination/Date Given: Yes Hx Influenza Vaccination/Date Given: Yes Hx Pneumococcal Vaccination/Date Given: Yes Immunizations Up to Date: Yes Travel Risk - International Travel Have you traveled outside of the country in past 3 weeks: No - Coronavirus Screening Are you exhibiting any of the following symptoms?: No Close contact with a COVID-19 positive Pt in past 14-21 Days: No - Review of Systems Constitutional: No Symptoms Eyes: No Symptoms Ears, Nose, & Throat: No Symptoms Respiratory: No Symptoms Cardiac: No Symptoms Abdominal/Gastrointestinal: No Symptoms Genitourinary Symptoms: No Symptoms Musculoskeletal: No Symptoms Skin: No Symptoms Neurological: Other (Confusion and combativeness) Psychological: No Symptoms Endocrine: No Symptoms Hematologic/Lymphatic: No Symptoms Immunological/Allergic: No Symptoms All Other Systems: Reviewed and Negative - Past Medical History Pertinent Past Medical History: Yes Neurological History: Alzheimer's Disease, Dementia, Stroke ENT History: No Pertinent History Cardiac History: No Pertinent History Respiratory History: No Pertinent History Endocrine Medical History: No Pertinent History Musculoskeletal History: Other GI Medical History: No Pertinent History History: No Pertinent History Psycho-Social History: No Pertinent History Female Reproductive Disorders: No Pertinent History Other Medical History: dysphagia, weakness, insomnia - Past Surgical History Past Surgical History: No Neuro Surgical History: No Pertinent History Cardiac: No Pertinent History Respiratory: No Pertinent History Gastrointestinal: No Pertinent History Genitourinary: No Pertinent History Musculoskeletal: No Pertinent History Female Surgical History: No Pertinent History Other Surgical History: unknown, no history obtainable - Social History Smoking Status: Never smoker Exposure to second hand smoke: No Drug Use: none Patient Lives Alone: No - Female History Hx Now: No - Nursing Vital Signs Nursing Vital Signs: Initial Vital Signs Temperature 97.5 F 11/05/19 03:59 Pulse Rate 79 11/05/19 03:59 Respiratory Rate 18 11/05/19 03:59 Blood Pressure 138/76 11/05/19 03:59 O2 Sat by Pulse Oximetry 100 11/05/19 03:59 Pain Scale Pain Intensity 0 - [place] Coma Score Best Eye Response ([place]): (4) open spontaneously Best Verbal Response (Adalid): (4) confused conversation Best Motor Response (Adalid): (6) obeys commands Adalid Total: 14 - Physical Exam General Appearance: no apparent distress, alert Head Injury: no evidence of injury Eye Exam: PERRL/EOMI, eyes nml inspection ENT Exam: airway nml, nml ext.inspection Neck Exam: supple, trachea midline, full range of motion, normal alignment, normal inspection, No focal neuro deficit Respiratory/Chest Exam: normal breath sounds, respiratory distress, No chest tenderness Cardiovascular Exam: normal heart sounds, regular rate/rhythm, murmur, normal peripheral pulses Gastrointestinal Exam: soft, normal bowel sounds, No tenderness, No guarding Rectal Exam: not done Back Exam: normal inspection, normal range of motion, No CVA tenderness, No vertebral tenderness Extremity Exam: normal inspection, normal range of motion, capillary refill <3 sec Neurologic Exam: alert, cooperative, 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, normal mood/affect, sensation nml, confusion, other (Oriented x1) Skin Exam: normal color, warm, dry SpO2 Interpretation: normal SpO2: 100 O2 Delivery: Room Air - Course Nursing assessment & vital signs reviewed: Yes Ordered Tests: Active Orders 24 hr Category Date Time Status Accucheck STAT Care 11/05/19 04:42 Active Perianesthesia Nurse STAT Care 11/05/19 04:43 Active IV Insertion STAT Care 11/05/19 04:42 Active NPO (ED) STAT Care 11/05/19 04:42 Active Pulse Oximetry (ED) STAT Care 11/05/19 04:42 Active HEAD WITHOUT CONTRAST [CT] Stat Exams 11/05/19 04:43 Taken CBC W DIFF Stat Lab 11/05/19 04:48 Completed CMP Stat Lab 11/05/19 04:48 Completed CULTURE,URINE Stat Lab 11/05/19 05:28 Received UA W/RFX UR CULTURE Stat Lab 11/05/19 05:28 Received Lab/Rad Data: Laboratory Result Diagrams 11/05/19 04:48 11/05/19 04:48 Laboratory Results 11/05/19 11/05/19 11/05/19 Range/Units 05:28 04:48 04:48 WBC 6.1 (4.0-10.5) K/mm3 RBC 3.58 L (4.1-5.4) M/mm3 Hgb 10.3 L (12.0-16.0) gm/dl Hct 33.1 L (35-47) % MCV 92.5 (78-100) fl MCH 28.8 (26-32) pg MCHC 31.1 L (32-36) g/dl RDW 14.1 H (11.5-14.0) % Plt Count 228 (150-450) K/mm3 MPV 10.2 (7.5-11.0) fl Gran % 52.2 (36.0-66.0) % Eos # (Auto) 0.04 (0-0.5) Absolute Lymphs (auto) 2.39 (1.0-4.6) Absolute Monos (auto) 0.49 (0.0-1.3) Lymphocytes % 38.9 (24.0-44.0) % Monocytes % 8.0 (0.0-12.0) % Eosinophils % 0.7 (0.00-5.0) % Basophils % 0.2 (0.0-0.4) % Absolute Granulocytes 3.21 (1.4-6.9) Basophils # 0.01 (0-0.4) Sodium 140 (137-145) mmol/L Potassium 3.6 (3.5-5.1) mmol/L Chloride 104 (98-107) mmol/L Carbon Dioxide 30 (22-30) mmol/L Anion Gap 8.4 (5-15) MEQ/L BUN 24 H (7-17) mg/dL Creatinine 0.53 (0.52-1.04) mg/dL Estimated GFR > 60.0 ML/MIN Glucose 99 (74-106) mg/dL Calcium 9.0 (8.4-10.2) mg/dL Total Bilirubin 0.40 (0.2-1.3) mg/dL AST 23 (14-36) U/L ALT 21 (0-35) U/L Alkaline Phosphatase 63 (38-126) U/L Serum Total Protein 6.4 (6.3-8.2) g/dL Albumin 3.4 L (3.5-5.0) g/dL Urine Color YELLOW (YELLOW) Urine Appearance SLIGHTLY CLOUDY (CLEAR) Urine pH 5.0 (5-6) Ur Specific [place] 1.025 (1.005-1.025) Urine Protein NEGATIVE (Negative) Urine Ketones NEGATIVE (NEGATIVE) Urine Blood SMALL (0-5) Milad/ul Urine Nitrite NEGATIVE (NEGATIVE) Urine Bilirubin NEGATIVE (NEGATIVE) Urine Urobilinogen 2 (0-1) mg/dL Ur Leukocyte Esterase MODERATE (NEGATIVE) Urine WBC (Auto) 16-25 (0-5) /HPF Urine RBC (Auto) 6-10 (0-2) /HPF U Epithel Cells (Auto) RARE (FEW) /HPF Urine Bacteria (Auto) RARE (NEGATIVE) /HPF U Non-Squamous Epi Cells RARE (FEW) /HPF Unidentified Crystals 2-5 (NEGATIVE) /HPF Urine Mucus (Auto) MANY (NEGATIVE) /HPF Urine Culture Reflexed YES (NO) Urine Glucose NEGATIVE (NEGATIVE) mg/dL - Progress Progress: unchanged Progress Note: 11/05/19 05:51 Patient has been confused during her emergency department stay but there is been no combativeness. CAT scan of the head reveals no acute intracranial pathology. There is generalized parenchymal atrophy and evidence of microvascular ischemic disease. This was compared to a CAT scan without contrast performed on September 17, 2019. Counseled pt/family regarding: lab results, diagnosis, need for follow-up, rad results - Departure Departure Disposition: Home Clinical Impression: Confusion, UTI (urinary tract infection) Condition: Stable Critical Care Time: No Referrals: SANJAY BRICENO [Primary Care Provider] - Additional Instructions: Drink plenty of fluids. Take medications as prescribed. Prescriptions: Ciprofloxacin [Cipro 500 MG] 500 mg PO BID #14 tablet
[2019-11-05 04:51] LABS: Absolute Neutrophil Ct (ANC) 3.21 (1.4-6.9); BASOPHIL % 0.2 % (0.0-0.4); Basophil (Absolute #) 0.01 (0-0.4); Eosinophil % 0.7 % (0.00-5.0); Eosinophil (Absolute #) 0.04 (0-0.5); Hematocrit 33.1 % (35-47); Hemoglobin 10.3 gm/dl (12.0-16.0); Lymphocyte (Absolute #) 2.39 (1.0-4.6); Lymphocytes % 38.9 % (24.0-44.0); Mean Cell Volume 92.5 fl (78-100); Mean Corpuscular Hemoglobin 28.8 pg (26-32); Mean Corpuscular Hgb Concent. 31.1 g/dl (32-36); Mean Platelet Volume 10.2 fl (7.5-11.0); Monocyte (Absolute #) 0.49 (0.0-1.3); Neutrophil % 52.2 % (36.0-66.0); Platelet Count 228 K/mm3 (150-450); Red Blood Count 3.58 M/mm3 (4.1-5.4); Red Cell Distribution Width 14.1 % (11.5-14.0); White Blood Count 6.1 K/mm3 (4.0-10.5)
[2019-11-05 05:06] LABS: ALBUMIN 3.4 g/dL (3.5-5.0); ALKALINE PHOSPHATASE 63 U/L (38-126); ANION GAP 8.4 MEQ/L (5-15); BLOOD UREA NITROGEN 24 mg/dL (7-17); CHLORIDE 104 mmol/L (98-107); Carbon Dioxide 30 mmol/L (22-30); Creatinine 1 0.53 mg/dL (0.52-1.04); Glucose 99 mg/dL (74-106); Potassium 3.6 mmol/L (3.5-5.1); SGOT/AST 23 U/L (14-36); SGPT/ALT 21 U/L (0-35); SODIUM 140 mmol/L (137-145); Total Protein 6.4 g/dL (6.3-8.2)
[2019-11-05 06:01] LABS: Appearance SLIGHTLY CLOUDY (CLEAR); Bacteria RARE /HPF (NEGATIVE); Bilirubin NEGATIVE (NEGATIVE); Blood SMALL Ery/ul (0-5); Epithelial Cells RARE /HPF (FEW); Glucose NEGATIVE (NEGATIVE); Ketones NEGATIVE (NEGATIVE); Leukocyte Esterase MODERATE (NEGATIVE); Mucus MANY /HPF (NEGATIVE); Nitrite NEGATIVE (NEGATIVE); Non-Squamous Epithelial Cells RARE /HPF (FEW); Protein,Urine Dip NEGATIVE (Negative); Specific Gravity 1.025 (1.005-1.025); Urobilinogen 2 mg/dL (0-1)
[2019-11-05] MEDS ORDERED: ROCEPHIN 1 Gm-D5w 50 ml Bag** 1 G/50 ML IVPB IV STA (06:03)
[2019-11-05] MEDS ORDERED: ROCEPHIN 1 Gm-D5w 50 ml Bag** 1 G/50 ML IVPB IV ONE (06:06)
--- NOTE | 2019-11-05 06:41 | XRAY ---
Indication: Confusion and combative. Multiple falls. Multiple contiguous axial images obtained through the head without contrast. Comparison: August 14 and September 17, 2019. Previous small right caudate head parenchymal hemorrhage has resolved with now remnant encephalomalacia. Stable age-appropriate global atrophy and moderate/advanced periventricular degenerative micro-ischemia bilaterally. No acute intracranial hemorrhage, abnormal extra-axial fluid collection, or mass effect. Fourth ventricle is midline. Bony calvarium intact. Visualized paranasal sinuses and mastoid air cells are clear. Impression: Nonacute senile brain. Comment: Preliminary interpretation was made by [facility]. No critical discrepancy.
[2019-11-05 07:20] VITALS: BP 138/68; PULSE 81; O2SAT 95
== END 2019-11-05 08:03 ==
LOC: ED 03:53
DX: R41.0 Disorientation, unspecified (principal); N39.0 Urinary tract infection, site not specified; Z79.899 Other long term (current) drug therapy; G30.9 Alzheimer's disease, unspecified; F02.80 Dementia in other diseases classified elsewhere, unspecified severity, without behavioral disturbance, psychotic disturbance, mood disturbance, and anxiety; Z86.73 Personal history of transient ischemic attack (TIA), and cerebral infarction without residual deficits
CPT/HCPCS: 36000; 36415; 70450; 80053; 81001; 82962; 85025; 87086; 93041; 94760; 96365; 99284; J0696